=== PATIENT | female | born 1945 | race Caucasian/White ===

== ENCOUNTER 2016-08-23 23:16 | Emergency (ER) | payer MEDICARE, OTHER ==
[~2016-08-23] VITALS: Ht 162.6 cm; Wt 100.0 kg
[~2016-08-23 23:16] MED LIST: ACET-141 PO; AMLO5TAB4 PO; ASPI-664 PO; CEPH-443 PO; CIPR500T4 PO; IBUP-1542 PO; IBUP800T25 PO; INSU100C SC; ISOS30TA5 PO; LEVEM SC; LISI30TA47 PO; LORA10TA3 PO; OXYC-279 PO; PANT40TA4 PO; SIMV20TA PO; SITA50TA2 PO; ZOLP5TAB7 PO
[2016-08-23 23:24] VITALS: Ht 162.6 cm; Wt 100.0 kg
[2016-08-23 23:53] LABS: ADD SCAN DIFF NO
[2016-08-23 23:59] LABS: BASOPHIL # 0.1 10^3/ul (0.0-0.1); BASOPHILS % 0.7 % (0.0-2.0); EOSINOPHILS # 0.3 10^3/ul (0.0-0.5); EOSINOPHILS % 3.3 % (0.0-7.0); HEMATOCRIT 28.4 % (37.0-47.0); HEMOGLOBIN 9.9 g/dl (12.0-16.0); LYMPHOCYTES # 1.9 10^3/ul (0.8-2.9); LYMPHOCYTES % 23.5 % (15.0-51.0); MEAN CORPUSCULAR HEMOGLOBIN 29.8 pg (29.0-33.0); MEAN CORPUSCULAR HGB CONC 34.9 g/dl (32.0-37.0); MEAN CORPUSCULAR VOLUME 85.5 fl (82.0-101.0); MONOCYTE # 0.7 10^3/ul (0.3-0.9); NEUTROPHIL # 5.2 10^3/ul (1.6-7.5); NEUTROPHILS % 62.7 % (39.0-77.0); PLATELET COUNT 321 10^3/UL (140-415); RED BLOOD COUNT 3.32 10^6/ul (4.20-5.40); RED CELL DISTRIBUTION WIDTH 12.3 % (11.5-14.5); WHITE BLOOD COUNT 8.3 10^3/ul (4.8-10.8)
[2016-08-24 00:12] LABS: CHLORIDE 95 mmol/L (97-110); POTASSIUM 3.9 mmol/L (3.5-5.1); SODIUM 130 mmol/L (135-144)
[2016-08-24 00:15] LABS: ANION GAP 18 (8-16); BLOOD UREA NITROGEN 29 mg/dl (7-20); CALCIUM 8.9 mg/dl (8.4-10.2); CARBON DIOXIDE 21 mmol/L (21-31); CREATININE 1.93 mg/dl (0.44-1.00); GLUCOSE 166 mg/dl (70-220); INR 0.94; PROTIME 12.6 Sec (12.2-14.2)
[2016-08-24 00:16] LABS: PARTIAL THROMBOPLASTIN TIME 31.5 Sec (25.0-35.0)
[2016-08-24 00:24] LABS: B-TYPE NATRIURETIC PEPTIDE 494 PG/ML (0-125)
[2016-08-24 00:28] LABS: TROPONIN-I < 0.012 ng/ml (0.00-0.12)
[2016-08-24] MEDS ORDERED: FUROSEMIDE 40 MG INJ IV ONE (01:00)
--- NOTE | 2016-08-24 01:05 | RADRPT ---
PROCEDURE: Portable chest x-ray. CLINICAL INDICATION: Chest pain. TECHNIQUE: Portable AP view of the chest. COMPARISON: 04/22/2016 FINDINGS: No pulmonary edema or conolidation is identified. The cardiac silhouette is mildly enlarged. No pl eural effusion is seen. There is no pneumothorax. IMPRESSION: 1. No evidence of acute cardiopulmonary disease. 2. Mildly enlarged cardiac silhouette. RPTAT: HTAR .Luan Andrews MD, MD Date Time Electronically viewed and signed by .Luan Andrews MD, MD on 08/24/2016 01:05 .R/
[2016-08-24 01:30] VITALS: BP 123/74; PULSE 70; RESP 16; TEMP 98.6
--- NOTE | 2016-08-24 01:43 | ERD ---
ER Documentation Chief Complaint Date/Time DATE: 08/24/16 TIME: 01:40 Chief Complaint edema on both lower legs x 6 days w/sob and chest pain HPI This 70-year-old female presents to the emergency room for evaluation of swollen legs, and mild shortness of breath worse with laying flat. This patient does have a history of CHF. She is taking Lasix 20 mg daily. She denies any chest pain at this time, denies any palpitations, states that her symptoms are improved when she sits up, and worse when she lays flat. She was brought to the ER for further evaluation because her legs are more swollen than normal. ROS All systems reviewed and are negative except as per history of present illness. Medications Home Meds Active Scripts Oxycodone HCl/Acetaminophen (Percocet 5-325 mg Tablet) 1 Each Tablet, 1 EACH PO TID for PAIN, #12 TAB Prov:DARIANA RUEDA MD 04/22/16 Loratadine* (Loratadine*) 10 Mg Tablet, 10 MG PO DAILY for NASAL CONGESTION, # 15 TAB Prov:DARIANA RUEDA MD 04/22/16 Ibuprofen* (Motrin*) 600 Mg Tab, 600 MG PO Q8 for PAIN AND/OR INFLAMMATION, #30 TAB Prov:DARIANA RUEDA MD 04/22/16 Cephalexin* (Keflex*) 500 Mg Capsule, 500 MG PO TID for 5 Days, CAP Prov:DARIANA RUEDA MD 04/22/16 Ciprofloxacin Hcl* (Ciprofloxacin Hcl*) 500 Mg Tablet, 500 MG PO BID for 3 Days , TAB Prov:BRAULIO PAZ DO 03/05/16 Reported Medications Isosorbide Mononitrate* (Isosorbide Mononitrate*) 30 Mg Tab.er.24h, 30 MG PO DAILY, TAB 03/04/16 Sitagliptin* (Januvia*) 50 Mg Tablet, 50 MG PO DAILY, #30 TAB 03/04/16 Lisinopril* (Lisinopril*) 30 Mg Tablet, 30 MG PO DAILY, #30 TAB 03/04/16 Pantoprazole* (Pantoprazole*) 40 Mg Tablet.dr, 40 MG PO DAILY, TAB 03/04/16 Zolpidem Tartrate* (Zolpidem Tartrate*) 5 Mg Tablet, 5 MG PO QHS Y for INSOMNIA , #30 TAB 03/04/16 Loratadine* (Loratadine*) 10 Mg Tablet, 10 MG PO DAILY, #30 TAB 03/04/16 Aspirin* (Aspirin* EC) 81 Mg Tablet.dr, 81 MG PO DAILY, TAB 03/04/16 Amlodipine Besylate* (Norvasc*) 5 Mg Tablet, 5 MG PO DAILY, TAB 03/04/16 Simvastatin* (Zocor*) 20 Mg Tablet, 20 MG PO QHS, #30 TAB 03/04/16 Ibuprofen* (Ibuprofen*) 800 Mg Tab, 800 MG PO TID, TAB 03/04/16 Insulin Lispro (Humalog) 100 U/Ml Cartridge, 20 UNITS SC DAILY, EA TAKE 20 UNITS AT NOON 10/08/14 Insulin Detemir* (Levemir*) 100 U/Ml Vial, BOTTLE SC BID, VIAL TAKE 40 UNITS AC BREAKFAST AND 30 UNITS AC DINNER 09/15/14 Acetaminophen* (Acetaminophen*) 500 MG Extra Strength Tablet, 1000 MG PO Q4H Y for PAIN AND OR ELEVATED TEMP, TAB 09/15/14 Allergies Allergies: Coded Allergies: No Known Allergies (Unverified Allergy, Unknown, 04/22/16) PMhx/Soc History of Surgery: Yes (cholecystectomy) Anesthesia Reaction: No Hx Neurological Disorder: No Hx Respiratory Disorders: No Hx Cardiac Disorders: Yes (htn, hyperlipidemia, heart valve problem, CHF) Hx Psychiatric Problems: Yes (depression, anxiety) Hx Miscellaneous Medical Probl: Yes (DM) Hx Alcohol Use: No Hx Substance Use: No Hx Tobacco Use: No Smoking Status: Never smoker Physical Exam Vitals Vital Signs Date Time Temp Pulse Resp B/P Pulse Ox O2 Delivery O2 Flow Rate FiO2 08/24/16 01:00 70 15 136/74 98 Room Air 08/23/16 23:40 75 17 129/71 99 Room Air 08/23/16 23:24 98.9 78 20 134/68 98 Physical Exam INITIAL VITAL SIGNS: Reviewed by me GENERAL: The patient is well developed and appropriate for usual state of health in no apparent distress HEENT: Pupils equal, round, and reactive to light. EOMI. There is no scleral icterus. NECK: C-spine is soft and supple, there is no meningismus. There is no cervical lymphadenopathy. LUNGS: Clear to auscultation bilaterally. There are no rales, wheezes or rhonchi. HEART: Regular rate and rhythm, no murmurs, clicks, rubs or gallops. ABDOMEN: Soft, non-tender, non-distended. There are bowel sounds in all four quadrants. No rebound or guarding. EXTREMITIES: 2+ pitting edema to bilateral lower extremities NEUROLOGICAL: The patient moves all four extremities with 5/5 strength. Cranial nerves II - XII are intact. Normal gait. Alert and oriented SKIN: There is no apparent rash or petechiae. HEME/LYMPHATIC: There is no evidence of excessive bruising or lymphedema. PSYCHIATRIC: The patient does not appear anxious or depressed. Result Diagram: 08/23/16 2340 08/23/16 2340 Results 24 hrs Laboratory Tests Test 08/23/16 23:40 White Blood Count 8.310^3/ul Red Blood Count 3.3210^6/ul Hemoglobin 9.9g/dl Hematocrit 28.4% Mean Corpuscular Volume 85.5fl Mean Corpuscular Hemoglobin 29.8pg Mean Corpuscular Hemoglobin Concent 34.9g/dl Red Cell Distribution Width 12.3% Platelet Count 48720^3/UL Mean Platelet Volume 10.0fl Neutrophils % 62.7% Lymphocytes % 23.5% Monocytes % 9.0% Eosinophils % 3.3% Basophils % 0.7% Nucleated Red Blood Cells % 0.0/100WBC Neutrophils # 5.210^3/ul Lymphocytes # 1.910^3/ul Monocytes # 0.710^3/ul Eosinophils # 0.310^3/ul Basophils # 0.110^3/ul Nucleated Red Blood Cells # 0.010^3/ul Prothrombin Time 12.6Sec Prothrombin Time Ratio 1.0 INR International Normalized Ratio 0.94 Activated Partial Thromboplast Time 31.5Sec Sodium Level 130mmol/L Potassium Level 3.9mmol/L Chloride Level 95mmol/L Carbon Dioxide Level 21mmol/L Anion Gap 18 Blood Urea Nitrogen 29mg/dl Creatinine 1.93mg/dl Glucose Level 166mg/dl Calcium Level 8.9mg/dl Troponin I < 0.012ng/ml B-Type Natriuretic Peptide 494PG/ML Current Medications Medications (Trade) Dose Ordered Sig/Soham Route PRN Reason Start Time Stop Time Status Last Admin Dose Admin Furosemide (Lasix) 40 mg ONCE ONCE IV 08/24/16 01:00 08/24/16 01:01 DC 08/24/16 01:11 Procedures/MDM EKG: Rate/Rhythm: [Normal Sinus Rhythm] QRS, ST, T-waves: [No changes consistent w/ acute ischemia] Impression: [No evidence of ischemia or arrhythmia] Chest X-ray 1V Interpreted by me: Soft Tissue: No acute abnormalities Bones: No acute abnormalities Mediastinum/Cardiac Silhouette/Lungs: [No acute abnormalities] This 70-year-old female presents to the ER for evaluation of shortness of breath. This patient does have a history of congestive heart failure. Her symptoms are consistent with an acute CHF exacerbation because the patient states that she has felt this way in the past, she states that it is worse when she lays flat. This patient is not hypoxic on my examination but she did have bilateral pitting edema. This patient was given 40 mg of Lasix via IV. Her chest x-ray is clear does not show any pulmonary edema. EKG is nonischemic and troponin is negative. This patient is diuresing well in the emergency room. She states she is feeling better at this time. I advised her to contact her primary care physician to adjust her dosage of Lasix and she verbalized understanding. Departure Diagnosis: Primary Impression: Acute CHF Additional Impression: Renal insufficiency Condition: Stable ELENITA STAUFFER DO Aug 24, 2016 01:42
== END 2016-08-24 01:55 | disposition home or self-care (01) ==
LOC: E/R 23:16
DX: I50.9 Heart failure, unspecified (principal); N28.9 Disorder of kidney and ureter, unspecified; E11.9 Type 2 diabetes mellitus without complications; I10 Essential (primary) hypertension; Z79.4 Long term (current) use of insulin; Z79.82 Long term (current) use of aspirin; Z79.84 Long term (current) use of oral hypoglycemic drugs
CPT/HCPCS: 36415; 71010; 80048; 83880; 84484; 85025; 85610; 85730; 93005; 96374; 99285; J1940

== ENCOUNTER 2016-11-23 22:25 | Emergency (ER) | payer MEDICARE, OTHER ==
[~2016-11-23] VITALS: Ht 160 cm; Wt 95.5 kg
[2016-11-23 22:54] VITALS: Ht 160 cm; Wt 95.5 kg
[2016-11-24] MEDS ORDERED: SOD CHLORIDE 0.9% 1,000 ML IV ONE (00:30)
--- NOTE | 2016-11-24 00:42 | ERD ---
ER Documentation Chief Complaint Date/Time DATE: 11/24/16 TIME: 00:39 Chief Complaint high blood sugar at home, 390 about 20 minutes ago HPI Patient is a 70-year-old female with insulin-dependent diabetes who presents with 2 days of gradual onset, constant, progressive, diffuse headache associated with vertigo and generalized weakness. She states that her blood sugars been running high during this time. She denies fever. She reports 2 episodes of vomiting. She denies focal weakness or numbness. She reports shortness of breath. She denies chest pain. She denies cough. She states that she has been compliant with her insulin, and has had poor appetite and poor oral intake for the last 2 days. She denies diarrhea. ROS All systems reviewed and are negative except as per history of present illness. Medications Home Meds Active Scripts Oxycodone HCl/Acetaminophen (Percocet 5-325 mg Tablet) 1 Each Tablet, 1 EACH PO TID for PAIN, #12 TAB Prov:DARIANA RUEDA MD 04/22/16 Ibuprofen* (Motrin*) 600 Mg Tab, 600 MG PO Q8 for PAIN AND/OR INFLAMMATION, #30 TAB Prov:DARIANA RUEDA MD 04/22/16 Reported Medications Isosorbide Mononitrate* (Isosorbide Mononitrate*) 30 Mg Tab.er.24h, 30 MG PO DAILY, TAB 03/04/16 Sitagliptin* (Januvia*) 50 Mg Tablet, 50 MG PO DAILY, #30 TAB 03/04/16 Lisinopril* (Lisinopril*) 30 Mg Tablet, 30 MG PO DAILY, #30 TAB 03/04/16 Pantoprazole* (Pantoprazole*) 40 Mg Tablet.dr, 40 MG PO DAILY, TAB 03/04/16 Zolpidem Tartrate* (Zolpidem Tartrate*) 5 Mg Tablet, 5 MG PO QHS Y for INSOMNIA , #30 TAB 03/04/16 Loratadine* (Loratadine*) 10 Mg Tablet, 10 MG PO DAILY, #30 TAB 03/04/16 Aspirin* (Aspirin* EC) 81 Mg Tablet.dr, 81 MG PO DAILY, TAB 03/04/16 Amlodipine Besylate* (Norvasc*) 5 Mg Tablet, 5 MG PO DAILY, TAB 03/04/16 Simvastatin* (Zocor*) 20 Mg Tablet, 20 MG PO QHS, #30 TAB 03/04/16 Ibuprofen* (Ibuprofen*) 800 Mg Tab, 800 MG PO TID, TAB 03/04/16 Insulin Lispro (Humalog) 100 U/Ml Cartridge, 20 UNITS SC DAILY, EA TAKE 20 UNITS AT NOON 10/08/14 Insulin Detemir* (Levemir*) 100 U/Ml Vial, BOTTLE SC BID, VIAL TAKE 40 UNITS AC BREAKFAST AND 30 UNITS AC DINNER 09/15/14 Acetaminophen* (Acetaminophen*) 500 MG Extra Strength Tablet, 1000 MG PO Q4H Y for PAIN AND OR ELEVATED TEMP, TAB 09/15/14 Discontinued Scripts Loratadine* (Loratadine*) 10 Mg Tablet, 10 MG PO DAILY for NASAL CONGESTION, # 15 TAB Prov:DARIANA RUEDA MD 04/22/16 Cephalexin* (Keflex*) 500 Mg Capsule, 500 MG PO TID for 5 Days, CAP Prov:DARIANA RUEDA MD 04/22/16 Ciprofloxacin Hcl* (Ciprofloxacin Hcl*) 500 Mg Tablet, 500 MG PO BID for 3 Days , TAB Prov:BRAULIO PAZ DO 03/05/16 Allergies Allergies: Coded Allergies: No Known Allergies (Unverified Allergy, Unknown, 11/23/16) PMhx/Soc Past medical history: Diabetes mellitus, hypertension, hyperlipidemia Past surgical history: Cholecystectomy Social history: Denies tobacco, alcohol or illicit drugs. History of Surgery: Yes (GALLBLADDER) Anesthesia Reaction: No Hx Neurological Disorder: No Hx Respiratory Disorders: No Hx Cardiac Disorders: Yes (HTN) Hx Psychiatric Problems: No Hx Alcohol Use: No Hx Substance Use: No Hx Tobacco Use: No Smoking Status: Never smoker FmHx Family History: No coronary disease, No diabetes Physical Exam Vitals Vital Signs Date Time Temp Pulse Resp B/P Pulse Ox O2 Delivery O2 Flow Rate FiO2 11/24/16 03:46 84 20 165/78 100 Room Air 11/24/16 02:08 79 17 140/88 98 Room Air 11/24/16 00:29 84 17 151/87 98 Room Air 11/23/16 22:54 98.4 98 20 156/78 98 Physical Exam Const: Alert, no acute distress Head: Atraumatic Eyes: Normal Conjunctiva, no pallor, no icterus ENT: Normal External Ears, Nose and Mouth. Tacky mucous membranes Neck: Full range of motion..~ No meningismus. No JVD Resp: Clear to auscultation bilaterally, no wheezes, no rales Cardio: Regular rate and rhythm, no murmurs Abd: Soft, non tender, non distended. Obese. Skin: No petechiae or rashes Back: No midline or flank tenderness Ext: No cyanosis, 1+ pitting edema bilateral shins Neur: Awake and alert, cranial nerves II through XII intact bilaterally, strength and sensation full in 4 extremities. No pronator drift. No dysmetria. Psych: Normal Mood and Affect Result Diagram: 11/24/163311/24/164 Results 24 hrs Laboratory Tests Test 11/23/16 22:58 11/24/16 00:05 11/24/16 00:34 11/24/16 00:35 Bedside Glucose 247mg/dL Sodium Level 140mmol/L 131mmol/L Potassium Level 3.9mmol/L 3.9mmol/L Chloride Level 94mmol/L 83mmol/L Carbon Dioxide Level 28mmol/L 29mmol/L Anion Gap 22 23 Blood Urea Nitrogen 14mg/dl 32mg/dl Creatinine 0.73mg/dl 1.96mg/dl Glucose Level 402mg/dl 235mg/dl Calcium Level 9.9mg/dl 9.7mg/dl White Blood Count 8.810^3/ul Red Blood Count 3.7010^6/ul Hemoglobin 10.9g/dl Hematocrit 31.6% Mean Corpuscular Volume 85.4fl Mean Corpuscular Hemoglobin 29.5pg Mean Corpuscular Hemoglobin Concent 34.5g/dl Red Cell Distribution Width 12.4% Platelet Count 07096^3/UL Mean Platelet Volume 10.3fl Neutrophils % 68.3% Lymphocytes % 20.4% Monocytes % 8.3% Eosinophils % 1.6% Basophils % 0.6% Neutrophils # 6.010^3/ul Lymphocytes # 1.810^3/ul Monocytes # 0.710^3/ul Eosinophils # 0.110^3/ul Basophils # 0.110^3/ul Nucleated Red Blood Cells # 0.010^3/ul Troponin I < 0.012ng/ml B-Type Natriuretic Peptide 111PG/ML Urine Color STRAW Urine Clarity CLEAR Urine pH 7.0 Urine Specific Mallory 1.009 Urine Ketones NEGATIVEmg/dL Urine Nitrite NEGATIVEmg/dL Urine Bilirubin NEGATIVEmg/dL Urine Urobilinogen NEGATIVEmg/dL Urine Leukocyte Esterase NEGATIVELeu/ul Urine Hemoglobin NEGATIVEmg/dL Urine Glucose 1+mg/dL Urine Total Protein NEGATIVEmg/dl Test 11/24/16 01:05 11/24/16 02:36 Bedside Glucose 225mg/dL 207mg/dL Current Medications Medications (Trade) Dose Ordered Sig/Soham Route PRN Reason Start Time Stop Time Status Last Admin Dose Admin Sodium Chloride (NS) 1,000 ml @ 1,000 mls/hr Q1H ONCE IV 11/24/16 00:30 11/24/16 01:29 DC 11/24/16 00:36 Insulin Human Regular (Novolin-R) 8 unit ONCE ONCE SC 11/24/16 01:00 11/24/16 01:01 Cancel Insulin Human Regular (Humulin R) 8 unit ONCE ONCE SC 11/24/16 01:04 11/24/16 01:05 DC 11/24/16 01:18 Miscellaneous Information 1 ea NOTE XX 11/24/16 01:10 11/24/16 03:48 DC Glucose (Glutose) 15 gm Q15M PRN PO DECREASED GLUCOSE 11/24/16 01:10 11/24/16 03:48 DC Glucose (Glutose) 22.5 gm Q15M PRN PO DECREASED GLUCOSE 11/24/16 01:10 11/24/16 03:48 DC Dextrose (D50w Syringe) 25 ml Q15M PRN IV DECREASED GLUCOSE 11/24/16 01:10 11/24/16 03:48 DC Dextrose (D50w Syringe) 50 ml Q15M PRN IV DECREASED GLUCOSE 11/24/16 01:10 11/24/16 03:48 DC Glucagon (Glucagen) 1 mg Q15M PRN IM DECREASED GLUCOSE 11/24/16 01:10 11/24/16 03:48 DC Glucose (Glutose) 15 gm Q15M PRN BUCCAL DECREASED GLUCOSE 11/24/16 01:10 11/24/16 03:48 DC Procedures/MDM EKG read by me: Time 0051, rate 82 Rhythm: Normal sinus [place]: Normal Intervals: Left axis deviation, left anterior fascicular block ST-T waves: no ischemic changes Ectopy: No Q-waves: No Impression: No evidence of ischemia or arrhythmia MDM: Patient is a 70-year-old female who presents with complaint of gradual onset headache and dizziness which she describes as a spinning sensation. She has no neurologic deficit or other symptoms. She attributes her symptoms to her elevated blood sugar. The patient is on long-term insulin therapy. She has elevated blood sugar, but no other electrolyte abnormalities except for renal insufficiency. There is no evidence of infection. Patient was given IV fluids and subcutaneous insulin, and states that her symptoms have significantly improved. There are no red flags for subarachnoid hemorrhage or meningitis. Her dizziness may be due to mild dehydration or peripheral vertigo , and there are no findings that are suggestive of a central etiology. The patient has adequate supply of medication at home. I advised her to follow-up with your PMD in the next 1-2 days, to return to the ER for any recurrence of symptoms or new symptoms. Departure Diagnosis: Primary Impression: Hyperglycemia due to type 2 diabetes mellitus Diabetes mellitus ferry terminal agent insulin use: with assisted use Qualified Code: E11.65 - Type 2 diabetes mellitus with hyperglycemia, with long-term current use of insulin Additional Impression: Dizziness Condition: Stable KAY JOSHI MD Nov 24, 2016 00:42
[2016-11-24 00:47] LABS: POTASSIUM 3.9 mmol/L (3.5-5.1)
[2016-11-24 00:51] LABS: ADD SCAN DIFF NO
[2016-11-24 00:54] LABS: BASOPHIL # 0.1 10^3/ul (0.0-0.1); BASOPHILS % 0.6 % (0.0-2.0); EOSINOPHILS # 0.1 10^3/ul (0.0-0.5); EOSINOPHILS % 1.6 % (0.0-7.0); HEMATOCRIT 31.6 % (37.0-47.0); HEMOGLOBIN 10.9 g/dl (12.0-16.0); LYMPHOCYTES # 1.8 10^3/ul (0.8-2.9); LYMPHOCYTES % 20.4 % (15.0-51.0); MEAN CORPUSCULAR HEMOGLOBIN 29.5 pg (29.0-33.0); MEAN CORPUSCULAR HGB CONC 34.5 g/dl (32.0-37.0); MEAN CORPUSCULAR VOLUME 85.4 fl (82.0-101.0); MEAN PLATELET VOLUME 10.3 fl (7.4-10.4); MONOCYTE # 0.7 10^3/ul (0.3-0.9); MONOCYTES % 8.3 % (0.0-11.0); NEUTROPHILS % 68.3 % (39.0-77.0); PLATELET COUNT 326 10^3/UL (140-415); RED CELL DISTRIBUTION WIDTH 12.4 % (11.5-14.5); WHITE BLOOD COUNT 8.8 10^3/ul (4.8-10.8)
[2016-11-24] MEDS ORDERED: INSULIN REGULAR 10 ML INJ SC ONE (01:00)
[2016-11-24] MEDS ORDERED: INSULIN REGULAR, HUMAN 100 UNIT/1 ML 3ML VIAL SC ONE (01:04)
[2016-11-24 01:05] LABS: ADD UMIC NO; UR ASCORBIC ACID NEGATIVE (NEGATIVE); UR BILIRUBIN (Dip) NEGATIVE (NEGATIVE); UR BLOOD (Dip) NEGATIVE (NEGATIVE); UR CLARITY CLEAR (CLEAR); UR COLOR STRAW (YELLOW); UR GLUCOSE (Dip) 1+ mg/dL (NEGATIVE); UR KETONES (Dip) NEGATIVE (NEGATIVE); UR LEUKOCYTE ESTERASE (Dip) NEGATIVE Leu/ul (NEGATIVE); UR NITRITE (Dip) NEGATIVE (NEGATIVE); UR SPECIFIC GRAVITY (Dip) 1.009 (1.003-1.030); UR TOTAL PROTEIN (Dip) NEGATIVE (NEGATIVE); UR UROBILINOGEN (Dip) NEGATIVE (NEGATIVE)
[2016-11-24] MEDS ORDERED: GLUCAGON 1 MG INJ IM PRN (01:10)
[2016-11-24] MEDS ORDERED: GLUCOSE GEL 15 GRAM TUBE PO PRN ×2 (01:10)
[2016-11-24] MEDS ORDERED: DEXTROSE 50% 50 ML SYRINGE IV PRN ×2 (01:10)
[2016-11-24] MEDS ORDERED: GLUCOSE GEL 15 GRAM TUBE BUCCAL PRN (01:10)
[2016-11-24 01:31] LABS: B-TYPE NATRIURETIC PEPTIDE 111 PG/ML (0-125)
[2016-11-24 01:38] LABS: TROPONIN-I < 0.012 ng/ml (0.00-0.12)
--- NOTE | 2016-11-24 01:39 | RADRPT ---
PROCEDURE: XR Chest. CLINICAL INDICATION: Dyspnea. TECHNIQUE: Single frontal view of the chest. COMPARISON: 04/22/2016. FINDINGS: Mild cardiomegaly. The lungs are clear. No signs of pleural fluid or pneumothorax are seen. The osse ous structures and soft tissues are unremarkable. IMPRESSION: No evidence for active cardiopulmonary disease. RPTAT: [facility] Physician Adrienne Date Time Electronically viewed and signed by Conrad Miller Physician on 11/24/2016 01:39 RS/
[2016-11-24 02:57] LABS: CALCIUM 9.7 mg/dl (8.4-10.2); CREATININE 1.96 mg/dl (0.44-1.00); POTASSIUM 3.9 mmol/L (3.5-5.1)
[2016-11-24 03:46] VITALS: BP 165/78; PULSE 84; RESP 20
[2016-11-24 06:47] LABS: CREATININE 1.96 mg/dl (0.44-1.00)
[2016-11-24 06:48] LABS: CALCIUM 9.7 mg/dl (8.4-10.2)
== END 2016-11-24 03:47 | disposition home or self-care (01) ==
LOC: E/R 22:25
DX: E11.65 Type 2 diabetes mellitus with hyperglycemia (principal); R42 Dizziness and giddiness; I10 Essential (primary) hypertension; R06.02 Shortness of breath; Z79.4 Long term (current) use of insulin; Z79.82 Long term (current) use of aspirin
CPT/HCPCS: 71010; 80048; 81003; 82962; 83880; 84484; 85025; 93005; 96372; 99285; J1815; J7030

== ENCOUNTER 2016-11-27 17:14 | Emergency (ER) | payer MEDICARE, OTHER ==
[~2016-11-27] VITALS: Ht 157.5 cm; Wt 94.5 kg
[~2016-11-27 17:14] MED LIST changes: -CEPH-443 PO; -CIPR500T4 PO
[2016-11-27 17:19] VITALS: Ht 157.5 cm; Wt 94.5 kg
== END 2016-11-27 20:30 | disposition left against medical advice (07) ==
LOC: E/R 17:14
DX: Z53.21 Procedure and treatment not carried out due to patient leaving prior to being seen by health care provider (principal)
CPT/HCPCS: 82962